=== PATIENT | male | born 1995 | race Hispanic/Latino ===

== ENCOUNTER 2022-02-25 07:48 | Emergency (ER) | payer SELFPAY ==
[2022-02-25 08:27] LABS: Absolute Lymphocytes (CBC) 2.8 K/uL (0.7-4.9); Hematocrit 48.2 % (39.6-49.0); MPV 8.1 fL (7.6-11.3); RBC Red Blood Cell Count 5.87 M/uL (4.33-5.43)
--- NOTE | 2022-02-25 09:21 | RAD REPORT ---
EXAM DESCRIPTION: Guillermo Single View02/25/2022 9:09 am CLINICAL HISTORY: Chest pain COMPARISON: none FINDINGS: The lungs appear clear of acute infiltrate. The heart is normal size IMPRESSION: No acute abnormalities displayed
[2022-02-25 09:45] LABS: BUN Blood Urea Nitrogen 13 mg/dL (7-18); Bicarbonate 28 mmol/L (21-32); Glucose Level 91 mg/dL (74-106); Potassium 3.3 mmol/L (3.5-5.1); Sodium Level 139 mmol/L (136-145); Troponin High Sensitivity 4.5 pg/mL (<58.9)
[2022-02-25 10:08] LABS: NT PRO-BNP < 5 pg/mL (<125)
--- NOTE | 2022-02-25 10:19 | ER ---
Nurse's Notes [facility] Name: Mor Christiansen Age: 26 yrs Sex: Male : 1995 Arrival Date: 02/25/2022 Time: 07:50 Bed 6 Private MD: Diagnosis: Chest pain, unspecified;Palpitations Presentation: 02/25 07:58 Chief complaint: Patient states: he has been having intermittent chest pain with ap3 pressure for the last three months. However he presents to the ED today for evaluations because the frequency of these cardiac episodes have increased. Patient states that with these episodes he feels heart palpitations and feels syncopal for 2-8 heart beats. Patient reports having a new symptom with it recently being a feeling of a lump in his throat. Patient denies having any of these feelings today. Coronavirus screen: At this time, the client does not indicate any symptoms associated with coronavirus-19. Ebola Screen: No symptoms or risks identified at this time. Initial Sepsis Screen: Does the patient meet any 2 criteria? No. Patient's initial sepsis screen is negative. Does the patient have a suspected source of infection? No. Patient's initial sepsis screen is negative. Risk Assessment: Do you want to hurt yourself or someone else? Patient reports no desire to harm self or others. Onset of symptoms was November 2021. 07:58 Method Of Arrival: Ambulatory ap3 07:58 Acuity: VINAY 3 ap3 Triage Assessment: 08:02 General: Appears in no apparent distress. Behavior is calm, cooperative, appropriate ap3 for age. Pain: Complains of pain in mid-sternal area Pain radiates to throat/neck area Pain currently is 1 out of 10 on a pain scale. Quality of pain is described as pin prick Pain began gradually, last few months Is intermittent. Neuro: Level of Consciousness is awake, alert, obeys commands, Oriented to person, place, time, situation, Appropriate for age. Cardiovascular: Patient's skin is warm and dry. Chest pain is described as mild. Respiratory: Airway is patent Respiratory effort is even, unlabored, Respiratory pattern is regular, symmetrical. Historical: - Allergies: 08:01 No Known Allergies; ap3 - Home Meds: 08:01 None [Active]; ap3 - PMHx: 08:01 None; ap3 - PSHx: 08:01 None; ap3 - Immunization history:: Client reports having NOT received the Covid vaccine. Flu vaccine is not up to date. - Social history:: Smoking status: Patient denies any tobacco usage or history of. - Family history:: not pertinent. - Hospitalizations: : No recent hospitalization is reported. Screenin:03 Abuse screen: Denies threats or abuse. Nutritional screening: No deficits noted. ap3 Tuberculosis screening: No symptoms or risk factors identified. Fall Risk None identified. Assessment: 08:00 General: Appears in no apparent distress. uncomfortable, Behavior is calm, cooperative. vg1 Pain: Complains of pain in anterior aspect of left upper chest Pain does not radiate. Pain currently is 1 out of 10 on a pain scale. Quality of pain is described as sharp, pinching, Pain began intermittently x 3 months Also complains of shortness of breath. Neuro: Level of Consciousness is awake, alert, obeys commands, Oriented to person, place, time, situation, Denies headache. Cardiovascular: Patient's skin is warm and dry. Respiratory: Airway is patent Respiratory effort is even, unlabored. GI: Patient currently denies nausea, vomiting. : No signs and/or symptoms were reported regarding the genitourinary system. EENT: No signs and/or symptoms were reported regarding the EENT system. Derm: Skin is intact, is healthy with good turgor. Musculoskeletal: Circulation, motion, and sensation intact. 09:00 Reassessment: Patient appears in no apparent distress at this time. No changes from vg1 previously documented assessment. Patient and/or family updated on plan of care and expected duration. Pain level reassessed. Patient is alert, oriented x 3, equal unlabored respirations, skin warm/dry/pink. 10:11 Reassessment: Patient appears in no apparent distress at this time. No changes from vg1 previously documented assessment. Patient and/or family updated on plan of care and expected duration. Pain level reassessed. Patient is alert, oriented x 3, equal unlabored respirations, skin warm/dry/pink. Vital Signs: 07:58 BP 158 / 94; Pulse 92; Resp 17; Temp 97.8; Pulse Ox 99% ; Weight 74.84 kg; Height 6 ft. ap3 1 in. (185.42 cm); Pain 1/; 08:49 BP 114 / 62; Pulse 68; Resp 18; Pulse Ox 100% ; vg1 10:11 BP 119 / 74; Pulse 68; Resp 15; Pulse Ox 100% ; vg1 07:58 Body Mass Index 21.77 (74.84 kg, 185.42 cm) ap3 ED Course: 07:50 Patient arrived in ED. mr 07:50 Jayro Tee MD is Attending Physician. rn 08:00 Halima Biwsas RN is Primary Nurse. vg1 08:01 Triage completed. ap3 08:03 Arm band placed on left wrist. EKG completed in triage. Results shown to MD. ap3 08:03 Patient has correct armband on for positive identification. Placed in gown. Bed in low ap3 position. Call light in reach. Side rails up X 1. desk monitor on. Pulse ox on. NIBP on. Door closed. Noise minimized. Warm blanket given. 08:03 Patient maintains SpO2 saturation greater than 95% on room air. ap3 08:05 Initial lab(s) drawn, by ED staff, sent to lab. Inserted saline lock: 20 gauge in right vg1 antecubital area, using aseptic technique. ,using aseptic technique. completed by air filler Blood collected. 09:11 XRAY Chest (1 view) In Process Unspecified. EDKS 10:22 Lenin Cramer MD is Referral Physician. rn 10:34 No provider procedures requiring assistance completed. IV discontinued, intact, vg1 bleeding controlled, No redness/swelling at site. Pressure dressing applied. Administered Medications: No medications were administered Outcome: 10:18 Discharge ordered by . rn 10:34 Discharged to home ambulatory. vg1 10:34 Condition: good 10:34 Discharge instructions given to patient, Instructed on discharge instructions, follow up and referral plans. Demonstrated understanding of instructions, follow-up care. 10:34 Patient left the ED. vg1 Signatures: Dispatcher [employer] EDKS Emma Izaguirre mr Jayro Tee MD MD rn Prokisch, Amanda, RN RN ap3 Halima Biswas RN RN vg1
--- NOTE | 2022-02-25 10:19 | EDPHYS ---
Physician Documentation [facility] Name: Mor Christiansen Age: 26 yrs Sex: Male : 1995 Arrival Date: 02/25/2022 Time: 07:50 Bed 6 Private MD: ED Physician Jayro Tee HPI: 02/25 08:05 This 26 yrs old Male presents to ER via Ambulatory with complaints of Chest rn Pain, Shortness Of Breath. 08:05 The patient or guardian reports chest pain that is located primarily in the chest rn diffusely. The pain radiates to Associated signs and symptoms: Pertinent positives: dizziness, palpitations, shortness of breath, Pertinent negatives: abdominal pain, cough. The chest pain is described as aching. Duration: The patient or guardian reports multiple episodes, that are intermittent. Modifying factors: The symptoms are alleviated by nothing. the symptoms are aggravated by nothing. Severity of pain: At its worst the pain was mild in the emergency department the pain is unchanged. The patient has experienced similar episodes in the past, chronically. The patient has not recently seen a physician. Pt reports chest pain and intermittent palpitations for last 10 years, worse over last 3 months with increase in frequency. No recent fever/cough. Denies smoking/vaping. No famhx of early cardiac problems. No trauma. No abd pain. Reports intermittent, radiates to neck, lasts at worse about 8 seconds. Denies stimulant use.. Historical: - Allergies: 08:01 No Known Allergies; ap3 - Home Meds: 08:01 None [Active]; ap3 - PMHx: 08:01 None; ap3 - PSHx: 08:01 None; ap3 - Immunization history:: Client reports having NOT received the Covid vaccine. Flu vaccine is not up to date. - Social history:: Smoking status: Patient denies any tobacco usage or history of. - Family history:: not pertinent. - Hospitalizations: : No recent hospitalization is reported. ROS: 08:05 Constitutional: Negative for fever, chills, and weight loss, Eyes: Negative for injury, rn pain, redness, and discharge, ENT: Negative for injury, pain, and discharge, Neck: Negative for injury, pain, and swelling, Cardiovascular: Negative for edema Respiratory: Negative for cough, wheezing Abdomen/GI: Negative for abdominal pain, nausea, vomiting, diarrhea, and constipation, Back: Negative for injury and pain, : Negative for injury, bleeding, discharge, and swelling, MS/Extremity: Negative for injury and deformity, Skin: Negative for injury, rash, and discoloration, Neuro: Negative for headache, weakness, numbness, tingling, and seizure. Exam: 08:04 ECG was reviewed by the Attending Physician. rn 08:05 Constitutional: This is a well developed, well nourished patient who is awake, alert, rn seems anxious and tremulous. Head/Face: Normocephalic, atraumatic. Eyes: Periorbital areas with no swelling, redness, or edema. ENT: No stridor Cardiovascular: Regular rate and rhythm. No pulse deficits. Respiratory: No increased work of breathing, no retractions or nasal flaring. Clear bilateral breath sounds. Skin: Warm, dry with normal turgor. Normal color with no rashes, no lesions, and no evidence of cellulitis. MS/ Extremity: Pulses equal, no cyanosis. Neurovascular intact. Full, normal range of motion. Equal circumference. Neuro: Awake and alert, GCS 15 Vital Signs: 07:58 BP 158 / 94; Pulse 92; Resp 17; Temp 97.8; Pulse Ox 99% ; Weight 74.84 kg; Height 6 ft. ap3 1 in. (185.42 cm); Pain 1/10; 08:49 BP 114 / 62; Pulse 68; Resp 18; Pulse Ox 100% ; vg1 10:11 BP 119 / 74; Pulse 68; Resp 15; Pulse Ox 100% ; vg1 07:58 Body Mass Index 21.77 (74.84 kg, 185.42 cm) ap3 MDM: 07:50 Patient medically screened. rn 10:17 Differential diagnosis: acute pericarditis, anxiety, chest wall pain, costochondritis, rn esophagitis, gastritis, gastroesophageal reflux disease (GERD), pleurisy, pneumothorax, pulmonary embolus. HEART Score: History: Slightly Suspicious (0), ECG: Normal (0), Age: < or = 45 years (0), Risk Factors: No Risk Factors Known (0), Troponin: < or = 1 x Normal Limit (0), Total Score = 0. Data reviewed: vital signs, nurses notes, lab test result(s), EKG, radiologic studies, plain films, and as a result, I will discharge patient. Counseling: I had a detailed discussion with the patient and/or guardian regarding: the historical points, exam findings, and any diagnostic results supporting the discharge/admit diagnosis, lab results, radiology results, the need for outpatient follow up, to return to the emergency department if symptoms worsen or persist or if there are any questions or concerns that arise at home. Special discussion: Based on the patient's history, exam, and Dx evaluation, there is no indication for emergent intervention or inpatient Tx. It is understood by the patient/guardian that if the Sx's persist or worsen they need to return immediately for re-evaluation. I discussed with the patient/guardian in detail that at this point there is no indication for admission to the hospital. It is understood, however, that if the symptoms persist or worsen the patient needs to return immediately for re-evaluation. Based on the history and exam findings, there is no indication for further emergent testing or inpatient evaluation. I discussed with the patient/guardian the need to see the flight nurse for further evaluation of the symptoms. I discussed with the patient/guardian the need to see the primary care provider for further evaluation of the symptoms. 10:17 ED course: Recommend outpt holter given fleeting symptoms lasting only for seconds and rn report of palpitations.. 02/25 08:04 Order name: Basic Metabolic Panel; Complete Time: 10:16 02/25 08:04 Order name: CBC with Diff; Complete Time: 08:40 02/25 08:04 Order name: D-Dimer; Complete Time: 08:40 02/25 08:04 Order name: NT PRO-BNP; Complete Time: 10:16 02/25 08:04 Order name: Troponin HS; Complete Time: 10:16 02/25 08:04 Order name: XRAY Chest (1 view); Complete Time: 09:27 02/25 08:04 Order name: EKG; Complete Time: 08:02/25 08:04 Order name: Cardiac monitoring; Complete Time: 08:02/25 08:04 Order name: EKG - Nurse/Tech; Complete Time: 08:02/25 08:04 Order name: IV Saline Lock; Complete Time: 08:02/25 08:04 Order name: Labs collected and sent; Complete Time: 08:05 rn 02/25 08:04 Order name: O2 Per Protocol; Complete Time: 08: rn 02/25 08:04 Order name: O2 Sat Monitoring; Complete Time: 08:05 rn EC:04 Rate is 75 beats/min. Rhythm is regular. QRS [place] is Normal. VT interval is normal. QRS rn interval is normal. QT interval is normal. No Q waves. T waves are Normal. No ST changes noted. Clinical impression: Normal ECG. Interpreted by me. Reviewed by me. Administered Medications: No medications were administered Disposition Summary: 02/25/22 10:18 Discharge Ordered Location: Home rn Problem: an ongoing problem rn Symptoms: have improved rn Condition: Stable rn Diagnosis - Chest pain, unspecified rn - Palpitations rn Followup: rn - With: Private Physician - When: As needed - Reason: Recheck today's complaints, Re-evaluation by your physician Followup: rn - With: Lenin Cramer MD - When: As needed - Reason: Recheck today's complaints, Re-evaluation by your physician Discharge Instructions: - Discharge Summary Sheet iw - Nonspecific Chest Pain, Adult rn - Pain Without a Known Cause rn - Palpitations rn Forms: - SBAR form iw - Medication Reconciliation Form rn - Thank You Letter rn - Antibiotic financial internship - Prescription Opioid Use rn Signatures: Dispatcher [employer] Jayro Gomez MD MD rn Prokisch, Amanda, RN RN ap3
[2022-02-25 10:40] VITALS: TEMP 97.8
[2022-02-25 10:42] VITALS: O2SAT 100
[2022-02-25 10:43] VITALS: BP 119/74
--- NOTE | 2022-03-01 11:26 | EKG ---
Test Date: 2022-02-25 Test Time: 07:58:46 Metal Wire Technician: KASSANDRA MEASUREMENT RESULTS: Intervals: Rate: 75 [place]: 116 QRSD: 98 QT: 348 QTc: 388 [place]: P: 76 [place]: 116 QRS: 83 T: 57 INTERPRETIVE STATEMENTS: Normal sinus rhythm Normal ECG No previous ECG available for comparison Electronically Signed On 03-01-22 11:14:21 CDT by Lenin Cramer
== END 2022-02-25 10:34 | disposition home or self-care (01) ==
LOC: ER 07:48
DX: R07.9 Chest pain, unspecified (principal); R00.2 Palpitations
CPT/HCPCS: 36415; 71045; 80048; 83880; 84484; 85025; 85379; 93005; 99285